=== PATIENT | male | born 1945 | race Hispanic/Latino ===

== ENCOUNTER 2017-06-20 19:27 | Emergency (ER) | payer OTHER ==
[~2017-06-20 19:27] MED LIST: ATOR10TA69 PO; HYDR25TA PO; METF-526 PO; METO100T14 PO; MULT-1258 PO; RIVA20TA PO
== END 2017-06-20 19:58 | disposition home or self-care (01) ==
LOC: EDH 19:27
DX: Z77.098 Contact with and (suspected) exposure to other hazardous, chiefly nonmedicinal, chemicals (principal); I25.10 Atherosclerotic heart disease of native coronary artery without angina pectoris; E11.9 Type 2 diabetes mellitus without complications; I10 Essential (primary) hypertension

== ENCOUNTER 2017-06-21 11:24 | Emergency (ER) | payer OTHER | END 2017-06-21 12:04 | disposition home or self-care (01) | LOC: EDH 11:24 | DX: T23.101A Burn of first degree of right hand, unspecified site, initial encounter (principal); I25.10 Atherosclerotic heart disease of native coronary artery without angina pectoris; E11.9 Type 2 diabetes mellitus without complications; I10 Essential (primary) hypertension; X12.XXXA Contact with other hot fluids, initial encounter; Y93.89 Activity, other specified; Y92.89 Other specified places as the place of occurrence of the external cause; Y99.8 Other external cause status | CPT/HCPCS: 99281 ==

== ENCOUNTER 2018-09-11 14:19 | Emergency (ER) | payer OTHER ==
[2018-09-11] MEDS ORDERED: KETOROLAC TROMETHAMINE 30MG/ML ONE (14:48)
[2018-09-11 15:04] LABS: BASOPHILS % (AUTO) 0.6 % (0.0-5.0); EOSINOPHILS % (AUTO) 1.3 % (0.0-8.0); HEMATOCRIT 41.2 % (42-54); LYMPHOCYTES % (AUTO) 25.2 % (21.0-51.0); MEAN CORPUSCULAR HEMOGLOBIN 28.7 pg (27.0-33.0); MEAN CORPUSCULAR HGB CONC 33.2 g/dL (32.0-36.0); MEAN CORPUSCULAR VOLUME 86.4 fL (79-99); MONOCYTES % (AUTO) 15.6 % (3.0-13.0); NEUTROPHILS % (AUTO) 57.3 % (40.0-77.0); PLATELET COUNT (AUTO) 238 K/uL (130-400); RED BLOOD CELL COUNT(AUTO) 4.77 MIL/uL (4.50-6.20); RED CELL DISTRIBUTION WIDTH 13.3 % (11.0-15.5); WHITE BLOOD COUNT (AUTO) 8.7 K/uL (4.8-10.8)
[2018-09-11 15:19] LABS: CREATININE 1.1 mg/dL (0.5-1.5); POTASSIUM 3.6 mmol/L (3.5-5.1)
[2018-09-11 15:22] LABS: ALBUMIN 3.8 g/dL (3.5-5.0); BILIRUBIN,TOTAL 0.6 mg/dL (0.2-1.0); TOTAL PROTEIN, SERUM 7.7 g/dL (6.0-8.3)
== END 2018-09-11 16:34 | disposition home or self-care (01) ==
LOC: EDH 14:19
DX: M10.9 Gout, unspecified (principal); M79.671 Pain in right foot; I10 Essential (primary) hypertension; I25.10 Atherosclerotic heart disease of native coronary artery without angina pectoris
CPT/HCPCS: 36415; 73620; 80053; 84550; 85025; 96372; 99283; J1885

== ENCOUNTER 2019-11-25 13:18 | Emergency (ER) | payer OTHER ==
[2019-11-25 14:09] LABS: CARBON DIOXIDE 30 mmol/L (21-32); CHLORIDE 95 mmol/L (101-111); CREATININE 1.4 mg/dL (0.5-1.5); GLOMERULAR FILTR. RATE CALC 53 mL/min (>60); GLUCOSE,RANDOM 167 mg/dL (70-105); POTASSIUM 3.9 mmol/L (3.5-5.1); SODIUM SERUM 135 mmol/L (136-145); UREA NITROGEN, BLOOD 25 mg/dL (7-18)
[2019-11-25 14:10] LABS: INR 0.95 (0.85-1.15); PROTHROMBIN TIME 10.3 SEC (9.6-11.6)
[2019-11-25 14:13] LABS: BASOPHILS % (AUTO) 0.2 % (0.0-5.0); EOSINOPHILS % (AUTO) 0.1 % (0.0-8.0); HEMATOCRIT 39.9 % (42-54); LYMPHOCYTES % (AUTO) 6.4 % (21.0-51.0); MEAN CORPUSCULAR HEMOGLOBIN 28.8 pg (27.0-33.0); MEAN CORPUSCULAR HGB CONC 33.8 g/dL (32.0-36.0); MEAN CORPUSCULAR VOLUME 85.1 fL (79-99); MONOCYTES % (AUTO) 10.7 % (3.0-13.0); NEUTROPHILS % (AUTO) 82.2 % (40.0-77.0); PLATELET COUNT (AUTO) 250 K/uL (130-400); RED BLOOD CELL COUNT(AUTO) 4.69 MIL/uL (4.50-6.20); RED CELL DISTRIBUTION WIDTH 13.2 % (11.0-15.5); WHITE BLOOD COUNT (AUTO) 11.6 K/uL (4.8-10.8)
[2019-11-25 14:16] LABS: APPEARANCE,URINE Cloudy (CLEAR); BILIRUBIN,URINE Small (NEGATIVE); COLOR,URINE Dark Yellow (YELLOW); GLUCOSE, URINE (UA) Negative (NEGATIVE); KETONES,URINE 15 mg/dL (NEGATIVE); LEUKOCYTE ESTERASE ,URINE Moderate (NEGATIVE); NITRATE,URINE Negative (NEGATIVE); OCCULT BLOOD,URINE Moderate (NEGATIVE); PROTEIN,URINE POS 1+ mg/dL (NEGATIVE)
[2019-11-25 14:34] LABS: BACTERIA,URINE Few /HPF (None Seen); SQUAMOUS EPITHELIAL CELL,UR Rare /HPF (0-2); WBC,URINE 51-100 /HPF (0-1)
[2019-11-25 14:35] LABS: ALANINE AMINOTRANSFERASE 72 U/L (12-78); ALBUMIN 3.5 g/dL (3.5-5.0); ASPARTATE AMINOTRANSFERASE 72 U/L (10-37); BILIRUBIN,TOTAL 1.5 mg/dL (0.2-1.0); CREATINE KINASE, TOTAL 87 U/L (21-232); MYOGLOBIN 113 ng/mL (10-92); TROPONIN I < 0.04 ng/mL (0.00-0.06)
[2019-11-25] MEDS ORDERED: LEVOFLOXACIN 500 MG/D5W 100 ML 100 ML ONE (15:51)
== END 2019-11-25 17:30 | disposition home or self-care (01) ==
LOC: EDH 13:18
DX: N45.3 Epididymo-orchitis (principal); Z20.828 Contact with and (suspected) exposure to other viral communicable diseases
CPT/HCPCS: 36415; 71045; 76870; 80053; 81001; 82550; 83605; 83874; 84145; 84484; 85025; 85610; 85730; 87040 ×2; 87077; 87088; 87186; 87426; 93005; 96365; 96366; 99284; J1956; U0003

== ENCOUNTER 2020-03-27 09:41 | Observation (INO) | payer OTHER ==
[~2020-03-27] VITALS: Ht 162.6 cm; Wt 73.8 kg
[2020-03-27 10:32] LABS: BASOPHILS % (AUTO) 0.5 % (0.0-5.0); EOSINOPHILS % (AUTO) 1.6 % (0.0-8.0); HEMATOCRIT 41.4 % (42-54); LYMPHOCYTES % (AUTO) 25.3 % (21.0-51.0); MEAN CORPUSCULAR HEMOGLOBIN 28.4 pg (27.0-33.0); MEAN CORPUSCULAR HGB CONC 33.6 g/dL (32.0-36.0); MEAN CORPUSCULAR VOLUME 84.5 fL (79-99); MONOCYTES % (AUTO) 10.4 % (3.0-13.0); PLATELET COUNT (AUTO) 277 K/uL (130-400); RED CELL DISTRIBUTION WIDTH 13.1 % (11.0-15.5); WHITE BLOOD COUNT (AUTO) 8.1 K/uL (4.8-10.8)
[2020-03-27 10:54] LABS: CREATININE 1.1 mg/dL (0.5-1.5); POTASSIUM 3.7 mmol/L (3.5-5.1)
[2020-03-27 10:59] LABS: ALBUMIN 4.2 g/dL (3.5-5.0); BILIRUBIN,TOTAL 0.9 mg/dL (0.2-1.0); TOTAL PROTEIN, SERUM 8.1 g/dL (6.0-8.3)
[2020-03-27 11:00] LABS: INR 1.01 (0.85-1.15)
[2020-03-27 11:02] LABS: PARTIAL THROMBOPLASTIN TIME 25.4 SEC (26.3-35.5)
[2020-03-27] MEDS: ASPIRIN 81MG TAB.CHEW PO SCH (12:42)
[2020-03-27] MEDS: METOPROLOL TARTRATE 50 MG TAB PO SCH ×2 (12:43→21:00)
[2020-03-27 13:36] LABS: THYROID STIMULATING HORMONE 1.15 uIU/mL (0.36-3.74)
[2020-03-27 13:37] LABS: HEMOGLOBIN A1C 6.5 % (4.0-6.0)
[2020-03-27] MEDS ORDERED: ONDANSETRON HCL 4 MG/2 ML VIAL ONE (15:15)
[2020-03-27] MEDS ORDERED: MORPHINE SULFATE 4 MG/1ML SYG ONE (15:16)
[2020-03-27] MEDS ORDERED: ATORVASTATIN CALCIUM 10 MG TABLET ONE (20:41)
[2020-03-27] MEDS ORDERED: METOPROLOL TARTRATE 50 MG TAB ONE ×2 (20:41→20:47)
[2020-03-27] MEDS: ATORVASTATIN CALCIUM 20 MG TABLET PO SCH (21:00)
[2020-03-27] MEDS ORDERED: LISI20TA24 PO (22:45)
[2020-03-27] MEDS ORDERED: AEC81 PO (22:45)
[2020-03-27 22:46] VITALS: BP 131/84
[2020-03-27 22:49] VITALS: BP 150/71
[2020-03-27 22:52] VITALS: BP 152/80
[2020-03-27 23:03] LABS: APPEARANCE,URINE Clear (CLEAR); BILIRUBIN,URINE Negative (NEGATIVE); COLOR,URINE Yellow (YELLOW); GLUCOSE, URINE (UA) Negative (NEGATIVE); KETONES,URINE Trace mg/dL (NEGATIVE); LEUKOCYTE ESTERASE ,URINE Small (NEGATIVE); NITRATE,URINE Negative (NEGATIVE); OCCULT BLOOD,URINE Negative (NEGATIVE); PROTEIN,URINE Negative (NEGATIVE); UROBILINOGEN,URINE 0.2 mg/dL (0.2-1.0)
[2020-03-27 23:18] LABS: BACTERIA,URINE Rare /HPF (None Seen); RBC,URINE 0-1 /HPF (0-1); WBC,URINE 0-1 /HPF (0-1)
[2020-03-28] VITALS: BP 140/76
[2020-03-28 04:00] VITALS: BP 161/82
[2020-03-28] MEDS: METOPROLOL TARTRATE 50 MG TAB PO SCH ×2 (04:09→10:43)
[2020-03-28 07:57] VITALS: BP 145/74
[2020-03-28] MEDS ORDERED: HYDROCHLOROTHIAZIDE 25 MG TABLET PO SCH (09:00)
[2020-03-28] MEDS ORDERED: LISINOPRIL 20 MG TABLET PO SCH (09:00)
[2020-03-28] MEDS: ASPIRIN 81MG TAB.CHEW PO SCH (10:42)
[2020-03-28 11:22] VITALS: BP 146/94
[2020-03-28 16:10] VITALS: BP 146/79
== END 2020-03-28 17:45 | disposition home or self-care (01) ==
LOC: EDH 09:41 → EDHIP 12:35 → 3CH 22:18
PROVIDERS: ADMIT Internal Medicine; ATTEND Internal Medicine
DX: R07.89 Other chest pain (principal); I10 Essential (primary) hypertension; E78.5 Hyperlipidemia, unspecified; E11.9 Type 2 diabetes mellitus without complications; I48.91 Unspecified atrial fibrillation; I20.9 Angina pectoris, unspecified; Z79.84 Long term (current) use of oral hypoglycemic drugs; Z79.82 Long term (current) use of aspirin; Z79.899 Other long term (current) drug therapy
CPT/HCPCS: 36415; 71045; 80053; 80061; 81001; 82550; 82948 ×3; 83036; 83880; 84443; 84484 ×3; 85025; 85610; 85730; 93005 ×2; 99285; G0378 ×29; J2270; J2405

== ENCOUNTER → 2020-05-02 | Outpatient (CLI) | payer OTHER ==
[~2020-05-02] VITALS: Ht 157.5 cm; Wt 72.1 kg
[~2020-05-02] MED LIST changes: +AEC81 PO; +LISI20TA24 PO; +REGADENOSON 0.4 MG/5 ML PF SYG IVP SCH; -RIVA20TA PO
== END | disposition home or self-care (01) ==
LOC: SHCH 07:50
PROVIDERS: ATTEND Internal Medicine Cardiovascular Disease
DX: I20.9 Angina pectoris, unspecified (principal); R06.00 Dyspnea, unspecified
CPT/HCPCS: 78452; 93017; 96374; A9500 ×2; J2785